=== PATIENT | male | born 1965 | race Caucasian/White ===

== ENCOUNTER 2017-03-25 18:52 | Observation (INO) | payer SELFPAY ==
[~2017-03-25] VITALS: Ht 162.6 cm; Wt 89.2 kg
--- NOTE | 2017-03-25 19:37 | DIAGNOSTIC IMAGING REPORT ---
PROCEDURE: XR CHEST 1 VIEW INDICATION: CHLORINE INHALATION, DYSPNEA TECHNIQUE: Portable AP view (194 5 hours). COMPARISON: None. FINDINGS: Allowing for suboptimal inspiration, lungs are clear. Heart and mediastinum are normal. Mild to moderate degenerative change of the right shoulder. Thorax is otherwise IMPRESSION: 1. Negative chest.
--- NOTE | 2017-03-25 21:22 | ED ORDER SUMMARY ---
..... Patient: DYLAN TOWNSEND OrderSheet [facility] VisitID: [id number] [address] [place] [address] 51y, M Registration Date/Time: 03/25/2017 ORDER SHEET Weight: 87.5 kg (measured) Allergies: No Known Drug Allergy GENERAL ORDERS: Chest 1V Urgent (19:03/25/2017 Xiomara SAVAGE) (Ack 19:10 LNations ER Tech1) (19:19 RCollier R.N.) Is Support Analyst (Continuous) (19:03/25/2017 Xiomara SAVAGE) (19:08 RCollier R.N.) Pulse oximeter (:03/25/2017 Xiomara SAVAGE) (19:08 RCollier R.N.) Oxygen (2 L/min) (NC) (19:03/25/2017 Xiomara SAVAGE) (19:08 RCollier R.N.) CBC w Diff Urgent (19:30 03/25/2017 Xiomara SAVAGE) (Ack 19:33 Chavo) (19:35 RCollier R.N.) CMP Urgent (19:30 03/25/2017 Xiomara SAVAGE) (Ack 19:33 Chavo) (19:35 RCollier R.N.) RT Evaluation Stat (20:39 03/25/2017 Xiomara SAVAGE) (Ack 20:40 Chavo) (20:47 ASingh) Chest 1V Urgent (20:39 03/25/2017 Xiomara SAVAGE) (Ack 20:40 Chavo) (21:16 RFay) MEDICATION ORDERS: - (Saline neb) (19:02 03/25/2017 Xiomara SAVAGE) (Ack 19:08 RCollier R.N.) (19:15 RCollier R.N.) DuoNeb Neb Tx 1 unit dose (NOW) (20:38 03/25/2017 Xiomara SAVAGE) (Ack 20:43 RCollier R.N.) (20:43 RCollier R.N.) IV FLUIDS: Dilaudid IV 0.5 mg (HIGH ALERT MEDICATION, NOW) (19:01 03/25/2017 Xiomara SAVAGE) (19:08 RCollier R.N.) IV Saline Lock (19:04 03/25/2017 LSullivan R.N. per protocol) (Ack 19:08 RCollier R.N.) Decadron IV 10 mg (NOW) (19:30 03/25/2017 Xiomara SAVAGE) (Ack 19:32 RCollier R.N.) (19:42 RCollier R.N.) IV NS : initial bolus 1000 mL (1000 mL/hr), then none - (NOW) (19:42 03/25/2017 RCollier R.N. verbal order read back to Xiomara SAVAGE) (Ack 19:43 RCollier R.N.) (19:44 RCollier R.N.) Toradol IV 30 mg (NOW) (20:33 03/25/2017 Xiomara SAVAGE) (Ack 20:35 RCollier R.N.) (20:43 RCollier R.N.) ORDER SHEET NOTES: [Electronically signed by Tiana Hay MD (22:26 03/25/2017)] [Electronically signed by Gabi Ness R.N. (22:28 03/25/2017)] [Electronically locked/signed by Gabi Ness R.N. (22:28 03/25/2017)]
--- NOTE | 2017-03-25 21:22 | ED ORDER SUMMARY ---
..... Patient: DYLAN TOWNSEND OrderSheet [facility] VisitID: [id number] [address] [place] [address] 51y, M Registration Date/Time: 03/25/2017 ORDER SHEET Weight: 87.5 kg (measured) Allergies: No Known Drug Allergy GENERAL ORDERS: Chest 1V Urgent (19:03/25/2017 Xiomara SAVAGE) (Ack 19:10 LNations ER Tech1) (19:19 RCollier R.N.) Ophthalmic Technician Apprentice (Continuous) (19:03/25/2017 Xiomara SAVAGE) (19:08 RCollier R.N.) Pulse oximeter (:03/25/2017 Xiomara SAVAGE) (19:08 RCollier R.N.) Oxygen (2 L/min) (NC) (19:03/25/2017 Xiomara SAVAGE) (19:08 RCollier R.N.) CBC w Diff Urgent (19:30 03/25/2017 Xiomara SAVAGE) (Ack 19:33 Chavo) (19:35 RCollier R.N.) CMP Urgent (19:30 03/25/2017 Xiomara SAVAGE) (Ack 19:33 Chavo) (19:35 RCollier R.N.) RT Evaluation Stat (20:39 03/25/2017 Xiomara SAVAGE) (Ack 20:40 Chavo) (20:47 ASingh) Chest 1V Urgent (20:39 03/25/2017 Xiomara SAVAGE) (Ack 20:40 Chavo) (21:16 RFay) MEDICATION ORDERS: - (Saline neb) (19:02 03/25/2017 Xiomara SAVAGE) (Ack 19:08 RCollier R.N.) (19:15 RCollier R.N.) DuoNeb Neb Tx 1 unit dose (NOW) (20:38 03/25/2017 Xiomara SAVAGE) (Ack 20:43 RCollier R.N.) (20:43 RCollier R.N.) IV FLUIDS: Dilaudid IV 0.5 mg (HIGH ALERT MEDICATION, NOW) (19:01 03/25/2017 Xiomara SAVAGE) (19:08 RCollier R.N.) IV Saline Lock (19:04 03/25/2017 LSullivan R.N. per protocol) (Ack 19:08 RCollier R.N.) Decadron IV 10 mg (NOW) (19:30 03/25/2017 Xiomara SAVAGE) (Ack 19:32 RCollier R.N.) (19:42 RCollier R.N.) IV NS : initial bolus 1000 mL (1000 mL/hr), then none - (NOW) (19:42 03/25/2017 RCollier R.N. verbal order read back to Xiomara SAVAGE) (Ack 19:43 RCollier R.N.) (19:44 RCollier R.N.) Toradol IV 30 mg (NOW) (20:33 03/25/2017 Xiomara SAVAGE) (Ack 20:35 RCollier R.N.) (20:43 RCollier R.N.) ORDER SHEET NOTES: [Electronically signed by Tiana Hay MD (22:26 03/25/2017)] [Electronically signed by Gabi Ness R.N. (22:28 03/25/2017)] [Electronically locked/signed by Gabi Ness R.N. (22:28 03/25/2017)]
--- NOTE | 2017-03-25 21:22 | ED NURSING NOTES ---
Clinical Report - Nurses [facility] [address] [place] [address] 03/25/2017 18:53 Patient: DYLAN TOWNSEND TRIAGE Triage time 18:58. Acuity: LEVEL 2. Chief Complaint: SHORTNESS OF BREATH and DIFFICULTY BREATHING and (PT OPENED A BOTTLE OF CHLORINE BLEACH FOR HOT TUB AND INHALED A LARGE AMOUNT OF TABLET DUST). Alert. --19:01 Nela Cardoza R.N. 18:57 03/25/17. BP: 158/88. HR: 97. RR: 32. O2 saturation: 96%. Temp: unable to obtain. Pain level now: 05/04. --19:01 Nela Cardoza R.N. Weight: 87.5 kg measured. Height/Length: 66 inches Per Patient. BMI: 31.2. --19:00 Nela Cardoza R.N. Medications None. --18:59 Nela Cardoza R.N. Allergies No Known Drug Allergy. --18:59 Nela Cardoza R.N. History Arrived by private vehicle. Historian: patient. Accompanied by family. Primary physician (none). ( Pt coughing continuously, sweating, red in face.). This started just prior to arrival and today. He has had a cough. PAST MEDICAL HX: Negative. SURGERY HX: No history of previous surgery. SOCIAL HX: Never smoker. No alcohol use or drug use. --19:01 Nela Cardoza R.N. Interventions ID band on patient. To room. --19:01 Nela Cardoza R.N. PHYSICAL ASSESSMENT 19:02 03/25/17. GENERAL / NEURO / PSYCH: Alert. Oriented X 4. RESPIRATORY: The patient can speak a few words at a time. Nonproductive cough. --19:02 Nela Cardoza R.N. NURSING PROGRESS NOTES 19:00 03/25/2017 Site #1 started via IV in the left antecubital space with an 20g angiocath, with aseptic technique and good blood return; one attempt. Blood drawn: rainbow set. Labeled in the presence of the patient and sent to the lab. Saline lock flushed with 10 mL saline. --19:07 Gabi Ness R.N. 19:00 03/25/2017 Site #2 started via IV in the right hand with an 18g angiocath, with aseptic technique and good blood return; one attempt. Saline lock flushed with 10 mL saline. --19:07 Gabi Ness R.N. Head of bed elevated. Two patient identifiers checked. Call light placed in reach. Side rails up x 2. Bed placed in lowest position. Brakes of bed on. --19:08 Gabi Ness R.N. Care transferred and report received. --19:08 Gabi Ness R.N. 19:04 03/25/2017 normal saline * Neb TX 1 given by RT --19:15 Gabi Ness R.N. Reassessment after medication administered (burning sensation still present, cough better.). Overall patient status- he states feels better. --19:17 Gabi Ness R.N. 19:05 03/25/2017 Started bag #1 1000 mL IV Fluids IV NS (Saline); at 1000 mL/hr over 1 hour(s) via site #2 via IV pump. Allergies verified and confirmed 5 rights. IV patency established. IV site checked: no pain, redness, or swelling. IV flushed thoroughly pre- and post-medication administration (NS started prior to my assuming care of pt, started by Nela Malone RN). --19:44 Gabi Ness R.N. 19:06 03/25/2017 Dilaudid (HYDROmorphone HCl PF) IVP 0.5 mg given over 30 second(s) via site #1. Allergies verified, confirmed 5 rights and sedative warning given to the patient. IV patency established. IV site checked: no pain, redness, or swelling. IV flushed thoroughly pre- and post-medication administration. IVP given by RN. --19:08 Gabi Ness R.N. 19:15 03/25/2017 Normal saline Neb TX discontinued due to improvement in patient condition: pt reports continued burning, cough improved. Discontinued upon: completion of treatment. --19:16 Gabi Ness R.N. 19:19 03/25/17. Portable chest x-ray performed and shown to the ED physician. --19:19 Gabi Ness R.N. 19:40 03/25/2017 Decadron IVP 10 mg given over 2 minute(s) via site #2. Allergies verified and confirmed 5 rights. IV patency established. IV site checked: no pain, redness, or swelling. IV flushed thoroughly pre- and post-medication administration. IVP given by RN. --19:42 Gabi Ness R.N. 20:04 03/25/2017 IV Fluids IV NS Discontinued: bag #1 completed. Total amount infused: 1000 mL. IV patency established. IV site checked: no pain, redness, or swelling. IV flushed thoroughly. --20:04 Gabi Ness R.N. 20:04 03/25/17. BP: 117/62. HR: 82. RR: 18. O2 saturation: 96% on nasal cannula at 2 liters/minute. --20:05 Gabi Ness R.N. The patient is calm and resting quietly. Spouse at bedside. --20:05 Gabi Ness R.N. 20:43 03/25/2017 Toradol IVP 30 mg given over 30 second(s) via site #2. Allergies verified and confirmed 5 rights. IV patency established. IV site checked: no pain, redness, or swelling. IV flushed thoroughly pre- and post-medication administration. IVP given by RN. --20:43 Gabi Ness R.N. 20:43 03/25/2017 Duoneb (Ipratropium-Albuterol) Neb TX Nebulizer 1 unit dose given. Given by the respiratory therapist. Allergies verified and confirmed 5 rights. --20:43 Gabi Ness R.N. 21:20 03/25/17. BP: 105/59. HR: 85. RR: 17. O2 saturation: 100% on nasal cannula at 2 liters/minute. --21:21 Gabi Ness R.N. The patient is sleeping. --21:57 Gabi Ness R.N. DISPOSITION / DISCHARGE 22:20 03/25/17. BP: 111/70. HR: 81. RR: 16. O2 saturation: 100% on nasal cannula at 2 liters/minute. Temp: deferred. Pain level now: 0/10. --22:21 Gabi Ness R.N. Report was given to a nurse via a phone call. Report included patient's care, treatment, medications, reviewed medication reconcilliation, and condition (including any recent changes or anticipated changes). All questions were answered. Report was acknowledged. --22:22 Gabi Ness R.N. 22:23 03/25/2017 Site #[address] upon admission. --22:23 Gabi Ness R.N. 22:23 03/25/2017 Site #[address] upon admission; flushes easily. --22:23 Gabi Ness R.N. Transported via stretcher by nurse with monitor, IV and O2. --22:28 Gabi Ness R.N. Locked/Released at 03/25/2017 22:28 by Gabi Ness R.N.
--- NOTE | 2017-03-25 21:22 | ED CLINICAL REPORT ---
Clinical Report - Physicians/Mid Levels [facility] [address] [place] [address] 03/25/2017 18:53 Patient: DYLAN TOWNSEND Time Seen: 1855. Arrived- By ambulance. Historian- patient and EMS personnel. HISTORY OF PRESENT ILLNESS Chief Complaint: DYSPNEA and inhalation of chlorine powder. This started just prior to arrival and is still present. The dyspnea is described as moderate. (nothing worsens or improves). The patient has had a cough, wheezing and dyspnea on exertion. No sputum production, fever, sweating episodes or chills. No chest pain or discomfort, calf pain, foot swelling or orthopnea. No anxiety, dizziness, tingling, numbness or palpitations. (patient states he was trying to get chlorine tablets out of a bucket for his hot tub and when he lifted the lid of the bucket dust from the chlorine tablets came out. Patient states he inhaled the dust accidentally and immediately noticed a burning sensation in his airways. Patient states he has been coughing uncontrollably since. He denies any skin or eye irritation. He does not have any history of pulmonary issues.). Similar symptoms previously: None. Recent medical care: Not recently seen/assessed. REVIEW OF SYSTEMS The patient has not had weight loss. No muscle aches, eye irritation, sore throat, nasal discharge or sinus drainage. No nausea, vomiting, abdominal pain, diarrhea or black stools. No bloody stools, headache, fainting episodes, blurred vision or difficulty with urination. No excessive urination, skin rash, enlarged lymph nodes or joint pain. All systems otherwise negative, except as recorded above. PAST HISTORY Problems: no known problems. Additional Surgeries: no known surgeries. Medications: None. Allergies: No Known Drug Allergy. SOCIAL HISTORY Never smoker. No alcohol use or drug use. ADDITIONAL NOTES The nursing notes have been reviewed. PHYSICAL EXAM Vital Signs: 03/25/2017 18:57 BP: 158/88. HR: 97. RR: 32. O2 saturation: 96%. Pain level now: 7/10. Have been reviewed. Appearance: Alert. Patient in moderate distress. Eyes: Pupils equal, round and reactive to light. Eyes normal inspection. ENT: Nose normal. Neck: Normal inspection. CVS: Normal heart rate and rhythm. Heart sounds normal. Pulses normal. Respiratory: Moderate respiratory distress with anxiety and tachypnea. Speaks short phrases. (Patient has persistent spasms of dry cough.). Abdomen: Soft and nontender. Back: Normal inspection. No CVA tenderness. Skin: Skin warm and dry. Normal skin color. No rash. Normal skin turgor. Extremities: Extremities exhibit normal ROM. No lower extremity edema. Neuro: (Neurologic exam is grossly intact.). LABS, X-RAYS, AND EKG Rhythm Strip #1: Time: (1904). Rate= 98. Normal sinus rhythm. Regular rhythm. Narrow QRS complexes. No ectopy. Conduction normal. Normal ST segments and T waves. The study was interpreted by me. Chest X-ray: No acute disease. Normal lung markings present. Normal heart size. Mediastinum normal. Great vessels normal. Soft tissues normal. No infiltrate. No fracture. No bony lesion present. Views: AP (portable). Technique: good. The X-rays were independently viewed by me, interpreted by the radiologist and contemporaneously by me and discussed with the radiologist. Prior films were not available for comparison. Laboratory Tests: CBC w Diff: (KALEN: 03/25/2017 18:55) ( MsgRcvd 03/25/2017 19:37) Final results Test Result Flag Units (Reference) WHITE BLOOD COUNT 10.6 K/uL (4.5-11.5) RED BLOOD COUNT 5.14 M/uL (4.50-5.90) HEMOGLOBIN 14.9 gm/dL (13.5-17.5) HEMATOCRIT 44.5 % (41.0-53.0) MEAN CELL VOLUME 87 fL (80-100) MEAN CORPUSCULAR HGB 29 pg (26-34) MEAN CORPUSCULAR HGB CONC 34 g/dL (31-37) RED CELL DISTRIBUTION WIDTH 13.1 % (11.6-14.8) PLATELET COUNT 310 K/uL (150-400) NEUTROPHIL % 57.2 % (50-75) LYMPH % 32.3 % (25-40) MONO % 8.5 % (3-14) EOSINOPHIL % 1.4 % (0-4) BASOPHIL % 0.6 % (0-2) CMP: (KALEN: 03/25/2017 18:55) ( MsgRcvd 03/25/2017 19:49) Final results Test Result Flag Units (Reference) GLUCOSE 111 H mg/dL (70-110) BUN 15 mg/dL (7-18) CREATININE 1.2 mg/dL (0.6-1.3) Estimated GFR >60 mL/min Estimated GFR- >60 mL/min Note: Persistent reduction over 3 months in eGFR<60 mL/min/1.73 m2 defines CKD. Patients with eGFR values>=60 mL/min/1.73 m2 may also have CKD if evidence ofpersistent proteinuria. Additional information may be foundat www.kidney.org. SODIUM 145 mmol/L (136-145) POTASSIUM 4.0 mmol/L (3.5-5.1) CHLORIDE 105 mmol/L (98-107) CARBON DIOXIDE 28 mmol/L (21-32) CALCIUM 9.5 mg/dL (8.5-10.1) TOTAL PROTEIN 8.2 g/dL (6.4-8.2) ALBUMIN 4.2 g/dL (3.3-5.0) BILIRUBIN, TOTAL 0.3 mg/dL (0.0-1.0) ALKALINE PHOSPHATASE 113 U/L (46-116) AST (SGOT) 23 U/L (15-37) ALT (SGPT) 32 U/L (12-78) . Pulse Oximetry: 03/25/2017 18:57 O2 saturation: 96%. (FIO2 - room air). Interpretation: normal. PROGRESS AND PROCEDURES Course of Care: patient was evaluated by myself immediately upon arrival in the emergency department. The patient was having constant fits of coughing and was gasping for air in between. However his lungs were clear on auscultation. I did have the respiratory therapist give the patient a saline nebulizer treatment. He was also given a small dose of IV Dilaudid to help calm the burning sensation in his airways. Patient was later given a dose of Decadron as well as Toradol. Initial chest x-ray was unremarkable; however on repeat examination the patient was found to have diffuse moderate wheezing as well as coarse rhonchi and a mildly prolonged expiratory phase. At this point I did have the respiratory therapist come back and get the patient a DuoNeb treatment, which did improve his respiratory status. I did feel the patient should be admitted to the hospital for observation given the fact that his clinical status had worsened over the course of observation in the emergency department. A repeat chest x-ray was not significantly changed. Critical care performed (40 minutes). Time is exclusive of separately billable procedures. Time includes: direct patient care, patient reassessment, coordination of patient care, interpretation of data (laboratory data, pulse oximetry, chest xrays and cardiac output measurements), review of patient's medical records, medical consultation and documentation of patient care- see progress notes. The patient required critical care due to the acute impairment of vital organ systems (respiratory) and a high probability of imminent and life threatening deterioration. Multiple emergent and urgent interventions were required to prevent sudden life threatening deterioration. Discussed case with hospitalist, (Rashad). Reviewed test results and need for additional work-up. Agreed upon treatment plan and decision to admit. Health care provider will see patient in hospital. Old medical records reviewed. Disposition: Admitted to the Critical Care Unit. Condition: stable and serious. CLINICAL IMPRESSION Acute bronchospasm (secondary to chemical exposure). (inhalational injury secondary to chlorine exposure). (Electronically signed by Tiana Hay MD 03/25/2017 22:26)
--- NOTE | 2017-03-25 21:24 | DIAGNOSTIC IMAGING REPORT ---
PROCEDURE: XR CHEST 1 VIEW INDICATION: SHORTNESS OF BREATH TECHNIQUE: Portable AP view (2100 hours). COMPARISON: Compared to chest x-ray on earlier in the day (03/25/2017, 1920 hours). FINDINGS: Allowing for suboptimal inspiration, lungs remain clear. Heart and mediastinum are normal. Thorax is normal. IMPRESSION: 1. Negative chest.
--- NOTE | 2017-03-25 22:28 | ED MED RECONCILIATION SUMMARY ---
Patient: DYLAN TOWNSEND Medication Reconciliation Report [facility] VisitID: [id number] [address] [place] [address] 51y, M Registration Date/Time: 03/25/2017 Weight: 87.5 kg Height/Length: 66 in. BMI: 31.2 ALLERGIES: No Known Drug Allergy The patient's Home Medications are listed below: NONE. The source(s) of the original Home Medication information: Not obtained. The following Medications were given to the patient in the Emergency Department: Dilaudid [IVP] IVP 0.5 mg, administered: 03/25/2017 7:06:00 PM normal saline Neb TX 1, administered: 03/25/2017 7:04:00 PM Decadron [IVP] IVP 10 mg, administered: 03/25/2017 7:40:00 PM IV NS IV Fluids bolus 0, then 1000 mL/hr, administered: 03/25/2017 7:05:00 PM Toradol [IVP] IVP 30 mg, administered: 03/25/2017 8:43:00 PM Duoneb [Neb Tx] Neb TX 1 unit dose, administered: 03/25/2017 8:43:00 PM Duoneb [Neb Tx] Neb TX 1 unit dose, administered: 03/25/2017 8:46:00 PM The following Medications were prescribed to the patient: None.
--- NOTE | 2017-03-25 22:28 | ED MAR SUMMARY ---
..... Medication Administration Record [facility] [address] [place] [address] Patient: DYLAN TOWNSEND Visit ID: [id number] 51y, M Weight: 87.5 kg Height/Length: 66 in BMI: 31.2 ALLERGIES: No Known Drug Allergy Given 19:04 03/25/2017 Gabi Ness R.N., Stop 19:15 03/25/2017 Gabi Ness R.N. Medication Administered: normal saline *, Dose: 1 * Neb TX. Medication Ordered: - (Saline neb). Start 19:03/25/2017 Gabi Ness R.N., Stop 20:04 03/25/2017 Gabi Ness R.N. Medication Administered: IV NS (SALINE), Dose: IV Fluids over 1 hour(s), Rate: 1000 mL/hr, Dispensed: 1000 mL bag, Site: #2 right hand. Medication Ordered: IV NS : initial bolus 1000 mL (1000 mL/hr), then none - (NOW). Given 19:06 03/25/2017 Gabi Ness R.N. Medication Administered: DILAUDID [IVP] (HYDROMORPHONE HCL PF), Dose: 0.5 mg IVP over 30 second(s), Site: #1 left AC. Medication Ordered: Dilaudid IV 0.5 mg (HIGH ALERT MEDICATION, NOW). Given 19:03/25/2017 Gabi Ness R.N. Medication Administered: DECADRON [IVP], Dose: 10 mg IVP over 2 minute(s), Site: #2 right hand. Medication Ordered: Decadron IV 10 mg (NOW). Given 20:43 03/25/2017 Gabi Ness R.N. Medication Administered: TORADOL [IVP], Dose: 30 mg IVP over 30 second(s), Site: #2 right hand. Medication Ordered: Toradol IV 30 mg (NOW). Given 20:03/25/2017 Gabi Ness R.N. Medication Administered: DUONEB [NEB TX] (IPRATROPIUM-ALBUTEROL), Dose: 1 unit dose Nebulizer Neb TX. Medication Ordered: DuoNeb Neb Tx 1 unit dose (NOW). Given 20:46 03/25/2017 Jose Abdalla, Medication Administered: DUONEB [NEB TX] (IPRATROPIUM-ALBUTEROL), Dose: 1 unit dose Nebulizer Neb TX. Medication Ordered: DuoNeb Neb Tx 1 unit dose (NOW).
--- NOTE | 2017-03-25 22:28 | ED MED RECONCILIATION SUMMARY ---
Patient: DYLAN TOWNSEND Medication Reconciliation Report [facility] VisitID: [id number] [address] [place] [address] 51y, M Registration Date/Time: 03/25/2017 Weight: 87.5 kg Height/Length: 66 in. BMI: 31.2 ALLERGIES: No Known Drug Allergy The patient's Home Medications are listed below: NONE. The source(s) of the original Home Medication information: Not obtained. The following Medications were given to the patient in the Emergency Department: Dilaudid [IVP] IVP 0.5 mg, administered: 03/25/2017 7:06:00 PM normal saline Neb TX 1, administered: 03/25/2017 7:04:00 PM Decadron [IVP] IVP 10 mg, administered: 03/25/2017 7:40:00 PM IV NS IV Fluids bolus 0, then 1000 mL/hr, administered: 03/25/2017 7:05:00 PM Toradol [IVP] IVP 30 mg, administered: 03/25/2017 8:43:00 PM Duoneb [Neb Tx] Neb TX 1 unit dose, administered: 03/25/2017 8:43:00 PM Duoneb [Neb Tx] Neb TX 1 unit dose, administered: 03/25/2017 8:46:00 PM The following Medications were prescribed to the patient: None.
--- NOTE | 2017-03-25 22:28 | ED DISCHARGE INSTRUCTIONS ---
Patient: DYLAN TOWNSEND General Instructions [facility] VisitID: [id number] [address] [place] [address] 51y, M Registration Date/Time: 03/25/2017 Acute bronchospasm (secondary to chemical exposure). (inhalational injury secondary to chlorine exposure). (Electronically signed by Tiana Hay MD 03/25/2017 22:26)
--- NOTE | 2017-03-25 22:28 | ED MAR SUMMARY ---
..... Medication Administration Record [facility] [address] [place] [address] Patient: DYLAN TOWNSEND Visit ID: [id number] 51y, M Weight: 87.5 kg Height/Length: 66 in BMI: 31.2 ALLERGIES: No Known Drug Allergy Given 19:04 03/25/2017 Gabi Ness R.N., Stop 19:15 03/25/2017 Gabi Ness R.N. Medication Administered: normal saline *, Dose: 1 * Neb TX. Medication Ordered: - (Saline neb). Start 19:03/25/2017 Gabi Ness R.N., Stop 20:04 03/25/2017 Gabi Ness R.N. Medication Administered: IV NS (SALINE), Dose: IV Fluids over 1 hour(s), Rate: 1000 mL/hr, Dispensed: 1000 mL bag, Site: #2 right hand. Medication Ordered: IV NS : initial bolus 1000 mL (1000 mL/hr), then none - (NOW). Given 19:06 03/25/2017 Gabi Ness R.N. Medication Administered: DILAUDID [IVP] (HYDROMORPHONE HCL PF), Dose: 0.5 mg IVP over 30 second(s), Site: #1 left AC. Medication Ordered: Dilaudid IV 0.5 mg (HIGH ALERT MEDICATION, NOW). Given 19:03/25/2017 Gabi Ness R.N. Medication Administered: DECADRON [IVP], Dose: 10 mg IVP over 2 minute(s), Site: #2 right hand. Medication Ordered: Decadron IV 10 mg (NOW). Given 20:43 03/25/2017 Gabi Ness R.N. Medication Administered: TORADOL [IVP], Dose: 30 mg IVP over 30 second(s), Site: #2 right hand. Medication Ordered: Toradol IV 30 mg (NOW). Given 20:03/25/2017 Gabi Ness R.N. Medication Administered: DUONEB [NEB TX] (IPRATROPIUM-ALBUTEROL), Dose: 1 unit dose Nebulizer Neb TX. Medication Ordered: DuoNeb Neb Tx 1 unit dose (NOW). Given 20:46 03/25/2017 Jose Abdalla, Medication Administered: DUONEB [NEB TX] (IPRATROPIUM-ALBUTEROL), Dose: 1 unit dose Nebulizer Neb TX. Medication Ordered: DuoNeb Neb Tx 1 unit dose (NOW).
--- NOTE | 2017-03-25 22:28 | ED DISCHARGE INSTRUCTIONS ---
Patient: DYLAN TOWNSEND General Instructions [facility] VisitID: [id number] [address] [place] [address] 51y, M Registration Date/Time: 03/25/2017 Acute bronchospasm (secondary to chemical exposure). (inhalational injury secondary to chlorine exposure). (Electronically signed by Tiana Hay MD 03/25/2017 22:26)
[2017-03-25 22:47] VITALS: BP 140/83
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
[2017-03-26 00:23] VITALS: BP 143/89
== END 2017-03-26 01:15 | disposition left against medical advice (07) ==
LOC: ED SRH 18:52 → TRANS SRH 21:28 → CC SRH 22:30
PROVIDERS: ADMIT Internal Medicine
DX: T54.3X1A Toxic effect of corrosive alkalis and alkali-like substances, accidental (unintentional), initial encounter (principal); J68.8 Other respiratory conditions due to chemicals, gases, fumes and vapors; R06.82 Tachypnea, not elsewhere classified; Y92.007 Garden or yard of unspecified non-institutional (private) residence as the place of occurrence of the external cause
CPT/HCPCS: 90100; 91672; 92132; 95059